=== PATIENT | male | born 2000 | race Hispanic/Latino ===

== ENCOUNTER 2018-04-15 15:45 | Emergency (ER) | payer OTHER ==
[2018-04-15] MEDS ORDERED: ONDANSETRON ODT 4 MG TAB ONE (16:10)
[2018-04-15] MEDS ORDERED: ACETAMINOPHEN 325 MG TAB ONE ×2 (16:10→17:51)
[2018-04-15] MEDS ORDERED: SODIUM CHLORIDE 0.9% 1000ML 1,000 ML IV ONE (16:17)
[2018-04-15] MEDS ORDERED: ONDANSETRON HCL 4 MG/2 ML VIAL ONE (16:17)
[2018-04-15] MEDS ORDERED: KETOROLAC TROMETHAMINE 30MG/ML ONE (16:17)
[2018-04-15 17:00] LABS: BASOPHILS % (AUTO) 0.2 % (0.0-5.0); HEMATOCRIT 51.5 % (42-54); MEAN CORPUSCULAR HEMOGLOBIN 34.1 pg (27.0-33.0); MEAN CORPUSCULAR HGB CONC 35.4 g/dL (32.0-36.0); MEAN CORPUSCULAR VOLUME 96.2 fL (80-100); MONOCYTES % (AUTO) 12.7 % (3.0-13.0); NEUTROPHILS % (AUTO) 80.1 % (40.0-77.0); NUCLEATED RED BLOOD CELLS 0.2 % (0.0-0.19); PLATELET COUNT (AUTO) 112 K/uL (130-400); RED BLOOD CELL COUNT(AUTO) 5.35 MIL/uL (4.50-6.20); RED CELL DISTRIBUTION WIDTH 13.2 % (11.0-15.5)
[2018-04-15 17:14] LABS: BILIRUBIN,TOTAL 0.9 mg/dL (0.2-1.0); TOTAL PROTEIN, SERUM 7.7 g/dL (6.0-8.3)
[2018-04-15 17:38] LABS: BILIRUBIN,URINE Small (NEGATIVE); COLOR,URINE Dark Yellow (YELLOW); GLUCOSE, URINE (UA) Negative (NEGATIVE); KETONES,URINE 15 mg/dL (NEGATIVE); LEUKOCYTE ESTERASE ,URINE Trace (NEGATIVE); NITRATE,URINE Negative (NEGATIVE); OCCULT BLOOD,URINE Large (NEGATIVE); PH,URINE 5.5 (5.0-8.0); PROTEIN,URINE POS 2+ (NEGATIVE)
[2018-04-15 17:44] LABS: APPEARANCE,URINE SLIGHTLY CLOUDY (CLEAR)
[2018-04-15 17:47] LABS: BACTERIA,URINE Few /HPF (None Seen); MUCUS,URINE Few LPF (None Seen); SQUAMOUS EPITHELIAL CELL,UR Few /HPF (0-2)
[2018-04-15 17:48] LABS: RBC,URINE 26-50 /HPF (0-1)
[2018-04-15] MEDS ORDERED: SODIUM CHLORIDE 0.9% 500ML 500 ML IV ONE (17:52)
[2018-04-15] MEDS ORDERED: DICYCLOMINE HCL 20 MG TAB ONE (18:13)
== END 2018-04-15 19:07 | disposition home or self-care (01) ==
LOC: EDH 15:45
DX: N30.00 Acute cystitis without hematuria (principal); E86.0 Dehydration; B34.9 Viral infection, unspecified; Z72.0 Tobacco use; Z98.890 Other specified postprocedural states
CPT/HCPCS: 36415; 76705; 80053; 81001; 83690; 85025; 87088; 87804 ×2; 96361; 96374; 96375; 99285; J1885; J2405; J7030; J7040